=== PATIENT | male | born 1985 | race African-American/Black ===

== ENCOUNTER 2021-10-19 14:25 | Outpatient (CLI) | payer OTHER ==
--- NOTE | 2021-10-19 17:08 | MRI Report ---
PROCEDURE: Finger(s) RT W/O INDICATIONS: PAIN IN RIGHT FINGERS TECHNIQUE: Noncontrast oblique coronal T1 spin echo and T2 fast spin echo with fat saturation, axial and sagitta l T2 fast spin echo with fat saturation, through the thumb. COMPARISON: None. FINDINGS: Image quality: Excellent. Bones: The bones are normally aligned, without marrow contusions or fractures. Osteoarthritic sarkar es are seen involving first MCP joint with joint space narrowing, subchondral sclerosis and subcortic al cystic changes particularly in first proximal phalangeal base. No suspicious intra-osseous lesions . First carpometacarpal joint: On sagittal images, the dorsal radial ligament and posterior oblique li gament appear intact. The intermetacarpal ligament between the 1st and 2nd metacarpal bases also lg ears intact. On the volar aspect, the deep and superficial layers of the anterior oblique ligament a ppear intact. First metacarpophalangeal joint: The proper and accessory components of the radial collateral ligame nt appears intact, along with overlying fibers of the abductor pollicis brevis tendon. The proper an d accessory components of the ulnar collateral ligaments appear thickened. Overlying fibers of the ad ductor pollicis muscle is intact. The aponeurosis of the adductor pollicis muscle also appears jerrod l. The volar plate appears intact on sagittal images, situated between the radial and ulnar sesamoid s. Thenar muscles: The superficial abductor pollicis longus muscle appears normal, with tendon insertin g on the radial base of the first proximal phalanx. The opponens pollicis muscle also appears normal , inserting on the first metacarpal shaft. The flexor pollicis brevis muscle appears normal, with te ndon inserting on the radial sesamoid and first proximal phalanx. The oblique and transverse heads o f the adductor pollicis muscle appear normal, inserting on the ulnar sesamoid and proximal phalanx as part of the adductor aponeurosis. Flexor pollicis longus tendon: Tendon fibers appear intact, coursing between the thenar eminence mus cles and the adductor pollicis muscle, and inserting on the volar base of the distal phalanx. The fi rst annular vibha at the level of the first MCP joint appears intact, intimate with the sesamoids. The second annular vibha at the level of interphalangeal joint also appears intact. The oblique alis ular vibha between the 1st and 2nd annular pulleys appears intact, with ulnar proximal attachment in timate with the adductor aponeurosis. The variable annular vibha also appears intact between the fi rst annular and oblique annular pulleys. Extensor tendons: The extensor pollicis brevis tendon appears intact, coursing radial to the extenso r pollicis longus tendon and inserting on the dorsal base of the proximal phalanx, blending with the dorsal plate of the first MCP joint. The extensor pollicis longus tendon appears intact as it insert s on the dorsal base of the distal phalanx. The sagittal band at the level of the first MCP joint ap pears intact. The abductor pollicis longus tendon slips appear intact at the radial aspect of the pr oximal phalanx, proximal to the abductor pollicis brevis tendon insertion. Miscellaneous: No ganglion cysts. IMPRESSION: 1. Osteoarthritic changes involving first MCP joint with joint space narrowing and subcortical cyst f ormation as above. No fracture or dislocation. No suspicious intraosseous lesion. 2. Suggestion of spraining/low-grade partial thickness tear involving ulnar collateral ligaments of f irst MCP joint. No full-thickness ligament rupture. Radial collateral ligaments are intact. 3. Extensor and flexor tendons are intact. No gross muscle signal abnormality. Reviewed by: Hemant Baker MD on 10/19/2021 5:06 PM PST Approved by: Hemant Baker MD on 10/19/2021 5:06 PM PST Station ID: [id number]
== END 2021-10-19 14:26 | disposition home or self-care (01) ==
LOC: DI 14:25
PROVIDERS: ATTEND Orthopaedic Surgery
DX: M19.041 Primary osteoarthritis, right hand (principal)